=== PATIENT | female | born 1940 | race Caucasian/White ===

== ENCOUNTER 2021-04-12 17:20 | Emergency (ER) | payer MEDICARE ==
[~2021-04-12] VITALS: Ht 167.6 cm; Wt 68.0 kg
[2021-04-12 20:34] LABS: BASOPHIL 0.2 % (0-2); EOSINOPHIL 0 % (0-7); HCT 40.6 % (37.0-47.0); HGB 13.2 g/dl (12.5-16.0); LYMPHOCYTE 11.8 % (15-48); MCH 30.3 pg (25.0-31.0); MCHC 32.5 g/dL (32.0-36.0); MCV 93.1 fL (78.0-100.0); MPV 10.4 fL (6.0-9.5); NEUTROPHIL 77.7 % (41-80); NRBC 0; PLT 184 K/uL (150-400); RBC 4.36 M/uL (4.20-5.40); RDW 13.2 % (11.5-14.0); WBC 6.2 K/uL (4.0-10.5)
[2021-04-12 20:44] LABS: ALBUMIN 3.9 g/dL (3.4-5.0); BILIRUBIN - TOTAL 0.6 mg/dL (0.2-1.0); BUN/CREAT RATIO (CALC) 17.4 RATIO; CREATININE 1.55 mg/dL (0.51-0.95); GLOBULIN (CALCULATION) 3.8 g/dL; POTASSIUM 4.5 mmol/L (3.5-5.1); TOTAL PROTEIN 7.7 g/dL (6.4-8.2)
[2021-04-12] MEDS ORDERED: ONDANSETRON ODT4 MG PO (21:51)
[2021-04-12] MEDS ORDERED: PREDNISONE 20MG20 MG PO (21:51)
== END 2021-04-12 22:10 | disposition home or self-care (01) ==
LOC: FER 17:20
PROVIDERS: Internal Medicine
DX: E86.0 Dehydration (principal); N17.9 Acute kidney failure, unspecified; U07.1 COVID-19; F03.90 Unspecified dementia, unspecified severity, without behavioral disturbance, psychotic disturbance, mood disturbance, and anxiety
CPT/HCPCS: 36415; 80053; 83605; 84145; 85025; J2930; J7120

== ENCOUNTER 2021-04-16 14:48 | Inpatient (IN) | payer MEDICARE ==
[~2021-04-16] VITALS: Ht 157.5 cm; Wt 67.2 kg
[~2021-04-16 14:48] MED LIST: ONDANSETRON ODT4 MG PO; PREDNISONE 20MG20 MG PO
[2021-04-16 15:46] LABS: BASOPHIL 0.1 % (0-2); EOSINOPHIL 0 % (0-7); HCT 35.4 % (37.0-47.0); LYMPHOCYTE 4.9 % (15-48); MCH 30.8 pg (25.0-31.0); MCHC 33.9 g/dL (32.0-36.0); MCV 90.8 fL (78.0-100.0); MONOCYTE 5.4 % (0-12); MPV 10.1 fL (6.0-9.5); NEUTROPHIL 89.1 % (41-80); NRBC 0; PLT 172 K/uL (150-400); RDW 12.6 % (11.5-14.0); WBC 11.4 K/uL (4.0-10.5)
[2021-04-16 16:01] LABS: INR 1.18 (0.9-1.2); PROTHROMBIN TIME 14.4 SECONDS (11.8-13.4); PTT 23.7 SECONDS (24.4-34.7)
[2021-04-16 16:46] LABS: ALBUMIN 3.3 g/dL (3.4-5.0); BILIRUBIN - TOTAL 0.4 mg/dL (0.2-1.0); BUN/CREAT RATIO (CALC) 27.4 RATIO; CREATININE 1.24 mg/dL (0.51-0.95); GLOBULIN (CALCULATION) 3.1 g/dL; POTASSIUM 2.9 mmol/L (3.5-5.1); TOTAL PROTEIN 6.4 g/dL (6.4-8.2)
[2021-04-16 16:53] LABS: CKMB 0.8 ng/mL (0.0-3.6)
[2021-04-16 20:04] LABS: FT4 (FREE T4) 0.8 ng/dL (0.76-1.46)
[2021-04-16 20:07] LABS: BILIRUBIN NEGATIVE (NEGATIVE); BLOOD TRACE-INTACT Ery/uL (NEGATIVE); CLARITY CLEAR (CLEAR); COLOR YELLOW (YELLOW); GLUCOSE (U) NORMAL (NORMAL); LEUKOCYTES NEGATIVE Leu/uL (NEGATIVE); NITRITE NEGATIVE (NEGATIVE); PROTEIN 1+ mg/dL (NEGATIVE); SPECIFIC GRAVITY 1.025 (1.001-1.030); UROBILINOGEN 0.2 mg/dL (0.2-1.0)
[2021-04-16 20:15] LABS: BACTERIA 3+; MUCOUS MODERATE
[2021-04-16 20:16] LABS: AMORPHOUS URATES CRYSTALS MODERATE
[2021-04-16 20:18] LABS: URINARY RBC RARE
--- NOTE | 2021-04-16 22:57 | NUR ---
PT VERY HARD OF HEARING, DOES NOT HAVE HEARING AID WITH HER AND HAS DEMENTIA DIAGNOSIS. THEREFORE HISTORY LIMITED.
[2021-04-16] MEDS ORDERED: ATORVASTATIN CA20 MG PO (23:22)
[2021-04-16] MEDS ORDERED: CHLORTHALIDONE25 MG PO (23:23)
[2021-04-16] MEDS ORDERED: CLOPIDOGREL75 MG PO (23:23)
[2021-04-16] MEDS ORDERED: DONEPEZIL HCL5 MG PO (23:23)
[2021-04-16] MEDS ORDERED: QUINAPRIL HCL40 MG PO (23:24)
[2021-04-16] MEDS ORDERED: MIRTAZAPINE7.5 MG PO (23:24)
[2021-04-16] MEDS ORDERED: PREDNISONE20 MG PO (23:25)
[2021-04-16] MEDS ORDERED: MEMANTINE HCL10 MG PO (23:26)
[2021-04-16] MEDS ORDERED: LORAZEPAM1 MG PO (23:26)
[2021-04-17 05:55] LABS: BASOPHIL 0 % (0-2); EOSINOPHIL 0 % (0-7); HGB 10.7 g/dl (12.5-16.0); LYMPHOCYTE 4.8 % (15-48); MCH 30.8 pg (25.0-31.0); MCHC 33.4 g/dL (32.0-36.0); MCV 92.2 fL (78.0-100.0); MONOCYTE 2.6 % (0-12); NRBC 0; PLT 140 K/uL (150-400); RBC 3.47 M/uL (4.20-5.40); RDW 12.8 % (11.5-14.0); WBC 9.3 K/uL (4.0-10.5)
[2021-04-17 06:17] LABS: BUN/CREAT RATIO (CALC) 26.2 RATIO; CREATININE 1.03 mg/dL (0.51-0.95); POTASSIUM 3.3 mmol/L (3.5-5.1)
[2021-04-17 15:06] LABS: RETICULOCYTE COUNT 1.3 % (1.0-2.0)
[2021-04-17 15:19] LABS: IRON % SATURATION 5.8 %SAT (20-50)
[2021-04-17 15:47] LABS: FOLIC ACID (SERUM) 12.3 ng/mL (8.6-58.9); MAGNESIUM 2.2 mg/dL (1.8-2.4)
[2021-04-18 04:35] LABS: BASOPHIL 0.1 % (0-2); EOSINOPHIL 0 % (0-7); HGB 10.8 g/dl (12.5-16.0); LYMPHOCYTE 3.6 % (15-48); MCH 30.6 pg (25.0-31.0); MCHC 33.8 g/dL (32.0-36.0); MCV 90.7 fL (78.0-100.0); MONOCYTE 2.5 % (0-12); MPV 10.5 fL (6.0-9.5); NRBC 0; PLT 152 K/uL (150-400); RBC 3.53 M/uL (4.20-5.40); RDW 12.8 % (11.5-14.0)
[2021-04-18 04:54] LABS: BUN/CREAT RATIO (CALC) 25.3 RATIO; CREATININE 0.91 mg/dL (0.51-0.95); MAGNESIUM 2.2 mg/dL (1.8-2.4); PHOSPHORUS 2.4 mg/dL (2.6-4.7); POTASSIUM 3.6 mmol/L (3.5-5.1)
[2021-04-18] MEDS ORDERED: POLY-IRON150 MG PO (15:34)
[2021-04-18] MEDS ORDERED: PROVENTIL HFA6.7 GM INH (15:34)
[2021-04-18] MEDS ORDERED: DEXAMETHASONE 2M2 MG PO (15:34)
[2021-04-18] MEDS ORDERED: ATROVENT HFA12.9 GM INH (15:34)
== END 2021-04-18 17:00 | disposition home or self-care (01) | DRG 177 ==
LOC: FER 14:48 → FMS 21:04
PROVIDERS: Emergency Medicine Emergency Medical Services; Internal Medicine; Nurse Practitioner; ADMIT Internal Medicine
PROC: 8E0ZXY6 Isolation (ICD-10-PCS; principal; 2021-04-16)
PROC: XW0DXM6 Introduction of Baricitinib into Mouth and Pharynx, External Approach, New Technology Group 6 (ICD-10-PCS; 2021-04-17)
DX: U07.1 COVID-19 (principal); J12.82 Pneumonia due to coronavirus disease 2019; J96.01 Acute respiratory failure with hypoxia; G93.41 Metabolic encephalopathy; F03.90 Unspecified dementia, unspecified severity, without behavioral disturbance, psychotic disturbance, mood disturbance, and anxiety; E87.6 Hypokalemia; I44.7 Left bundle-branch block, unspecified; Z98.890 Other specified postprocedural states; Z79.02 Long term (current) use of antithrombotics/antiplatelets; Z79.899 Other long term (current) drug therapy
CPT/HCPCS: 36415; 36600; 70450; 71045; 71250; 80048; 80053; 80061; 81001; 82550; 82553; 82607; 82746; 82803; 83540; 83550; 83605; 83735; 83874; 83880; 84100; 84145; 84439; 84443; 84484; 85025; 85610; 85730; 87088; 93005; 94010; 94640; 94667; 94668; J0456; J0696; J1100; J1650; J2916; J3360; J3480; J3486; J7030; J7050; U0002

== ENCOUNTER 2021-11-19 13:29 | Emergency (ER) | payer MEDICARE ==
[~2021-11-19] VITALS: Ht 172.7 cm; Wt 63.5 kg
[~2021-11-19 13:29] MED LIST changes: +ATORVASTATIN CA20 MG PO; +ATROVENT HFA12.9 GM INH; +CHLORTHALIDONE25 MG PO; +CLOPIDOGREL75 MG PO; +DEXAMETHASONE 2M2 MG PO; +DONEPEZIL HCL5 MG PO; +LORAZEPAM1 MG PO; +MEMANTINE HCL10 MG PO; +MIRTAZAPINE7.5 MG PO; +POLY-IRON150 MG PO; +PREDNISONE20 MG PO; +PROVENTIL HFA6.7 GM INH; +QUINAPRIL HCL40 MG PO
[2021-11-19 15:06] LABS: BASOPHIL 0.5 % (0-2); HCT 37.1 % (37.0-47.0); HGB 12.7 g/dl (12.5-16.0); LYMPHOCYTE 8.8 % (15-48); MCH 31.1 pg (25.0-31.0); MCHC 34.2 g/dL (32.0-36.0); MCV 90.9 fL (78.0-100.0); MONOCYTE 6.9 % (0-12); MPV 9.4 fL (6.0-9.5); NEUTROPHIL 81.6 % (41-80); NRBC 0; PLT 271 K/uL (150-400); RBC 4.08 M/uL (4.20-5.40); RDW 12.7 % (11.5-14.0); WBC 8.1 K/uL (4.0-10.5)
[2021-11-19 15:24] LABS: BUN/CREAT RATIO (CALC) 27.4 RATIO; CREATININE 1.35 mg/dL (0.51-0.95); POTASSIUM 3.3 mmol/L (3.5-5.1)
[2021-11-19 15:27] LABS: CORONAVIRUS 2019 SARS-COV-2 NEGATIVE (NEGATIVE); INFLUENZA A NAA NEGATIVE (NEGATIVE)
== END 2021-11-19 16:12 | disposition home or self-care (01) ==
LOC: FER 13:29
PROVIDERS: Nurse Practitioner Family
DX: E86.0 Dehydration (principal); I10 Essential (primary) hypertension; F03.90 Unspecified dementia, unspecified severity, without behavioral disturbance, psychotic disturbance, mood disturbance, and anxiety; Z20.822 Contact with and (suspected) exposure to COVID-19
CPT/HCPCS: 36415; 80048; 85025; 99284; J7030; U0002

== ENCOUNTER 2022-03-26 18:39 | Inpatient (IN) | payer MEDICARE ==
[~2022-03-26] VITALS: Ht 175.3 cm; Wt 65.9 kg
[2022-03-26 19:16] LABS: BASOPHIL 0.3 % (0-2); EOSINOPHIL 0 % (0-7); HCT 30.6 % (37.0-47.0); HGB 10.5 g/dl (12.5-16.0); LYMPHOCYTE 2.3 % (15-48); MCH 31.1 pg (25.0-31.0); MCHC 34.3 g/dL (32.0-36.0); MCV 90.5 fL (78.0-100.0); MONOCYTE 8.4 % (0-12); MPV 10.2 fL (6.0-9.5); NRBC 0; PLT 217 K/uL (150-400); RBC 3.38 M/uL (4.20-5.40); RDW 11.5 % (11.5-14.0); WBC 11.5 K/uL (4.0-10.5)
[2022-03-26 19:20] LABS: NEUTROPHIL 88.6 % (41-80)
[2022-03-26 19:27] LABS: INR 1.42 (0.9-1.2); PROTHROMBIN TIME 16.9 SECONDS (11.9-13.9); PTT 28.9 SECONDS (24.9-34.6)
[2022-03-26 19:37] LABS: ALBUMIN 3.2 g/dL (3.4-5.0); BILIRUBIN - TOTAL 0.8 mg/dL (0.2-1.0); BUN/CREAT RATIO (CALC) 16.8 RATIO; CREATININE 1.49 mg/dL (0.51-0.95); POTASSIUM 2.9 mmol/L (3.5-5.1); TOTAL PROTEIN 7.2 g/dL (6.4-8.2)
[2022-03-26 21:03] LABS: CORONAVIRUS 2019 SARS-COV-2 NEGATIVE (NEGATIVE); INFLUENZA A NAA NEGATIVE (NEGATIVE)
[2022-03-26 22:13] LABS: FT4 (FREE T4) 1.4 ng/dL (0.76-1.46)
[2022-03-27 06:34] LABS: HGB 8.5 g/dl (12.5-16.0); MCH 31.5 pg (25.0-31.0); MCV 92.6 fL (78.0-100.0); MPV 10.4 fL (6.0-9.5); RBC 2.7 M/uL (4.20-5.40); RDW 11.6 % (11.5-14.0); RETICULOCYTE COUNT 1.4 % (1.0-2.0); WBC 6.3 K/uL (4.0-10.5)
[2022-03-27 06:43] LABS: INR 1.5 (0.9-1.2); PROTHROMBIN TIME 17.6 SECONDS (11.9-13.9)
[2022-03-27 07:06] LABS: BUN/CREAT RATIO (CALC) 21.3 RATIO; CREATININE 1.27 mg/dL (0.51-0.95); POTASSIUM 3.9 mmol/L (3.5-5.1)
[2022-03-27 11:43] LABS: BILIRUBIN NEGATIVE (NEGATIVE); BLOOD TRACE-INTACT Ery/uL (NEGATIVE); CLARITY CLEAR (CLEAR); COLOR YELLOW (YELLOW); GLUCOSE (U) NORMAL (NORMAL); LEUKOCYTES NEGATIVE Leu/uL (NEGATIVE); NITRITE NEGATIVE (NEGATIVE); PROTEIN TRACE (LOW) mg/dL (NEGATIVE); SPECIFIC GRAVITY >=1.030 (1.001-1.030); UROBILINOGEN 0.2 mg/dL (0.2-1.0); pH 5.5 (5.0-9.0)
[2022-03-27 12:01] LABS: BACTERIA 1+
[2022-03-27] MEDS ORDERED: BUSPAR5 MG PO (14:52)
[2022-03-27] MEDS ORDERED: VIBRAMYCIN100 MG PO (14:53)
[2022-03-27] MEDS ORDERED: OFLOXACIN5 M2 EYEBOTH (14:53)
[2022-03-27] MEDS ORDERED: MEDROL 4MG DOSEP4 MG PO (14:54)
[2022-03-28 09:43] LABS: BASOPHIL 0.1 % (0-2); EOSINOPHIL 0 % (0-7); HCT 28.4 % (37.0-47.0); HGB 9.7 g/dl (12.5-16.0); LYMPHOCYTE 5.3 % (15-48); MCH 31.5 pg (25.0-31.0); MCHC 34.2 g/dL (32.0-36.0); MCV 92.2 fL (78.0-100.0); MONOCYTE 5.6 % (0-12); NEUTROPHIL 88.4 % (41-80); NRBC 0; PLT 223 K/uL (150-400); RBC 3.08 M/uL (4.20-5.40); RDW 11.5 % (11.5-14.0)
[2022-03-28 09:58] LABS: WBC 15.8 K/uL (4.0-10.5)
[2022-03-28 10:49] LABS: BUN/CREAT RATIO (CALC) 29.6 RATIO; CREATININE 1.25 mg/dL (0.51-0.95); POTASSIUM 4.3 mmol/L (3.5-5.1)
[2022-03-28 10:53] LABS: MAGNESIUM 2.2 mg/dL (1.8-2.4)
--- NOTE | 2022-03-28 11:01 | NUR ---
GAVE REPORT TO DAVID ON [facility]. PATIENT TRANSFERRED TO [facility] BED 6. CONTRACTOR BUYER DISCONTINUED AND REMOVED FROM PATIENT. TRANSPORTED VIA BED WITH 2 AIDES.
[2022-03-29 06:38] LABS: BASOPHIL 0.2 % (0-2); EOSINOPHIL 0.1 % (0-7); HGB 9.3 g/dl (12.5-16.0); LYMPHOCYTE 7.7 % (15-48); MCH 31.5 pg (25.0-31.0); MCHC 33.2 g/dL (32.0-36.0); MCV 94.9 fL (78.0-100.0); MONOCYTE 6.5 % (0-12); MPV 10.4 fL (6.0-9.5); NEUTROPHIL 84.8 % (41-80); NRBC 0; PLT 192 K/uL (150-400); RBC 2.95 M/uL (4.20-5.40); RDW 11.7 % (11.5-14.0); WBC 11.9 K/uL (4.0-10.5)
[2022-03-29 06:48] LABS: BUN/CREAT RATIO (CALC) 29.9 RATIO; CREATININE 1.17 mg/dL (0.51-0.95)
--- NOTE | 2022-03-29 17:34 | NUR ---
PATIENT HITTING STAFF WITH CARE, SMACKING AND THREATENING TO SMACK STAFF IN THE FACE. UNABLE TO REDIRECT. REFUSING TO EAT IF SHE IS NOT ABLE TO SIT UP, UNABLE TO SIT UP DUE TO HIP FX THAT HAS NOT BEEN CORRECTED YET. VERY HATEFUL TALKING TO STAFF AND BELLIGERENT
[2022-03-30 06:52] LABS: BASOPHIL 0.4 % (0-2); EOSINOPHIL 0.5 % (0-7); HCT 28.1 % (37.0-47.0); HGB 9.4 g/dl (12.5-16.0); LYMPHOCYTE 8.8 % (15-48); MCH 31.4 pg (25.0-31.0); MCHC 33.5 g/dL (32.0-36.0); MPV 9.6 fL (6.0-9.5); NEUTROPHIL 83.2 % (41-80); NRBC 0; PLT 183 K/uL (150-400); RBC 2.99 M/uL (4.20-5.40); RDW 11.7 % (11.5-14.0); WBC 8.3 K/uL (4.0-10.5)
[2022-03-30 06:56] LABS: INR 1.28 (0.9-1.2); PROTHROMBIN TIME 15.6 SECONDS (11.9-13.9); PTT 27.9 SECONDS (24.9-34.6)
[2022-03-30 07:25] LABS: BUN/CREAT RATIO (CALC) 23.6 RATIO; CREATININE 1.06 mg/dL (0.51-0.95); FOLIC ACID (SERUM) 4.6 ng/mL (8.6-58.9); MAGNESIUM 1.7 mg/dL (1.8-2.4); POTASSIUM 3.6 mmol/L (3.5-5.1)
--- NOTE | 2022-03-30 15:44 | NUR ---
03/30/22 Ms Potter is unable to participate in an assessment. A message has been left for her son, Srikanth Pearce, requesting a return call.
--- NOTE | 2022-03-30 16:43 | NUR ---
03/30/22 A social assessment was conducted with patient's son, Srikanth Gonzalez. Ms. Potter was admitted from [facility] Where she has been residing for the past year. She is followed by [facility]. Ms. Potter was independent with [facility] prior to admission. - Mr. Pearce chose [facility], and [facility] for SNF placement.
--- NOTE | 2022-03-31 10:03 | NUR ---
03/31/22 Clinicals have been faxed to [facility].
--- NOTE | 2022-03-31 13:01 | NUR ---
03/31/22 Srikanth Quinones, son, relays his preference to be [facility] opposed to [facility]. [facility] did agree to accept patient. [facility] was informed that pt will be going else where. - [facility] accepted patient for admission today. She meets EMS criteria.
[2022-03-31] MEDS ORDERED: FOLIC ACID1 MG PO (15:34)
[2022-03-31] MEDS ORDERED: PANTOPRAZOLE SO40 MG PO (15:34)
[2022-03-31] MEDS ORDERED: SACCHAROMYCES250 MG PO (15:34)
[2022-03-31] MEDS ORDERED: POLY-IRON150 MG PO (15:34)
[2022-03-31] MEDS ORDERED: OXYCODONE-ACET1 EAC1 PO (15:34)
[2022-03-31] MEDS ORDERED: MELATONIN5 M2 PO (15:34)
[2022-03-31] MEDS ORDERED: CEFDINIR300 MG PO (15:34)
== END 2022-03-31 18:55 | DRG 480 ==
LOC: FER 18:39 → FTCU 20:56 → FMS 20:56 → FTCU 22:35 → FMS 03-28 10:11
PROVIDERS: Emergency Medicine; Internal Medicine; Legal Medicine; Nurse Practitioner Acute Care; ADMIT Internal Medicine
PROC: B24BZZZ Ultrasonography of Heart with Aorta (ICD-10-PCS; 2022-03-29)
PROC: 0QS706Z Reposition Left Upper Femur with Intramedullary Internal Fixation Device, Open Approach (ICD-10-PCS; principal; 2022-03-30 07:00)
DX: S72.142A Displaced intertrochanteric fracture of left femur, initial encounter for closed fracture (principal); J18.9 Pneumonia, unspecified organism; J96.01 Acute respiratory failure with hypoxia; N17.9 Acute kidney failure, unspecified; E87.1 Hypo-osmolality and hyponatremia; D68.9 Coagulation defect, unspecified; G30.9 Alzheimer's disease, unspecified; F02.80 Dementia in other diseases classified elsewhere, unspecified severity, without behavioral disturbance, psychotic disturbance, mood disturbance, and anxiety; D50.9 Iron deficiency anemia, unspecified; H91.90 Unspecified hearing loss, unspecified ear; N18.30 Chronic kidney disease, stage 3 unspecified; E87.6 Hypokalemia; D63.1 Anemia in chronic kidney disease; W19.XXXA Unspecified fall, initial encounter; Y92.009 Unspecified place in unspecified non-institutional (private) residence as the place of occurrence of the external cause; Z20.822 Contact with and (suspected) exposure to COVID-19; I12.9 Hypertensive chronic kidney disease with stage 1 through stage 4 chronic kidney disease, or unspecified chronic kidney disease; I25.10 Atherosclerotic heart disease of native coronary artery without angina pectoris; M81.0 Age-related osteoporosis without current pathological fracture; Z87.891 Personal history of nicotine dependence; Z79.899 Other long term (current) drug therapy; I95.9 Hypotension, unspecified; R73.9 Hyperglycemia, unspecified
CPT/HCPCS: 36415; 36600; 70450; 71250; 73501; 73502; 76000; 80048; 80053; 81001; 82550; 82728; 82746; 82803; 83540; 83735; 84439; 84443; 84484; 85025; 85610; 85730; 86850; 86900; 86901; 87088; 93005; 94010; 94640; 94664; 94760; 97162; 97166; 97530; 97530-GP; C1713; J0456; J0696; J0697; J1650; J2060; J2270; J2405; J2704; J2795; J2916; J2930; J3010; J3480; J7030; J7050; J7120; U0002